=== PATIENT | male | born 1940 | race Caucasian/White ===

== ENCOUNTER → 2016-12-03 | Outpatient (CLI) | payer OTHER | LOC: FIMAGING 14:53 | PROVIDERS: ATTEND Orthopaedic Surgery | DX: M17.12 Unilateral primary osteoarthritis, left knee (principal); K57.30 Diverticulosis of large intestine without perforation or abscess without bleeding ==

== ENCOUNTER 2016-12-13 10:59 | Inpatient (IN) | payer OTHER ==
[~2016-12-13 10:59] MED LIST: ACETAMINOPHEN 325 MG TAB PO ONE; CEFAZOLIN 2 GM/DEXTR 100 ML IV ONE; CHLORHEXIDINE GLUC HIBICLENS 118 ML BTL TP ONE; DEXAMETHASONE 4 MG/ML VIAL IVP ONE; FAMOTIDINE 20 MG TAB PO ONE; ROPI/epiNEPH/KETOROLAC JOINT COCKTAIL IU ONE; SKIN ADHESIVE (DERMABOND) 1 EACH TP ONE; TRANEXAMIC ACID 3,000 MG in NS 50 ML IRR ONE; TRANEXAMIC ACID 3,000 MG/50 ML BAG IRR ONE; VANCOMYCIN 1 GM VIAL IV ONE
[2016-12-13] MEDS ORDERED: DEXAMETHASONE 4 MG/ML VIAL ONE ×2 (11:53→12:57)
[2016-12-13] MEDS ORDERED: FAMOTIDINE 20 MG TAB ONE (11:54)
[2016-12-13] MEDS ORDERED: ACETAMINOPHEN 325 MG TAB ONE (11:54)
[2016-12-13] MEDS ORDERED: CEFAZOLIN 2 GM/DEXTROSE/100 ML BAG IV ONE (11:54)
[2016-12-13] MEDS ORDERED: MIDAZOLAM 2 MG/2 ML VIAL ONE (12:19)
[2016-12-13] MEDS ORDERED: PROPOFOL/EMULSION 500 MG/50 ML BOTTLE IV ONE ×2 (12:23→12:35)
[2016-12-13] MEDS ORDERED: fentaNYL 100 MCG/2 ML INJ ONE (12:24)
[2016-12-13] MEDS ORDERED: ONDANSETRON 4 MG/2 ML VIAL ONE (12:57)
[2016-12-13] MEDS ORDERED: epHEDrine SULFATE 10 MG/ML SYR ONE (13:22)
[2016-12-13] MEDS ORDERED: ROPIVACAINE HCL 150 MG/30 ML INJ ONE (13:42)
[2016-12-13] MEDS ORDERED: PHARMACY PAIN CONSULT 1 EA MISC PRN (13:51)
[2016-12-13] MEDS ORDERED: TEMAZEPAM 15 MG CAP PO PRN (13:51)
[2016-12-13] MEDS ORDERED: CYCLOBENZAPRINE 10 MG TAB PO PRN (13:51)
[2016-12-13] MEDS ORDERED: diphenhydrAMINE 25 MG CAP PO PRN (13:51)
[2016-12-13] MEDS ORDERED: MAGNESIUM HYDROXIDE 30 ML UDCUP PO PRN (13:51)
[2016-12-13] MEDS ORDERED: METOCLOPRAMIDE 10 MG/2 ML VIAL IVP PRN (13:51)
[2016-12-13] MEDS ORDERED: BISACODYL 10 MG SUPP PR PRN (13:51)
[2016-12-13] MEDS ORDERED: ONDANSETRON DISINTEGRATING 4 MG TAB PO PRN (13:51)
[2016-12-13] MEDS ORDERED: PROMETHAZINE HCL 25 MG SUPPR PR PRN (13:51)
[2016-12-13] MEDS ORDERED: POLYETHYLENE GLYCOL 3350 17 GM PKT PO PRN (13:51)
[2016-12-13] MEDS ORDERED: ONDANSETRON 4 MG/2 ML VIAL IVP PRN (13:51)
[2016-12-13] MEDS ORDERED: LACTULOSE 20 GM/30 ML UDCUP PO PRN (13:51)
[2016-12-13] MEDS ORDERED: DIPHENOXYLATE/ATROPINE LOMOTIL 1 TAB PO PRN (13:51)
--- NOTE | 2016-12-13 13:51 | POSTOPPROG ---
Post Op Note Date of Operation: 12/13/16 Surgeon: Jayda Lawrence Mixing Operator: carlos lawrence Anesthesiologist: dr. morrison Anesthesia: Spinal, Other (Specify) (adductor canal block) Pre-op Diagnosis: left knee OA Post-op Diagnosis: same Indication: left knee pain due to OA that failed conservative measures Procedure: L tKA Findings: severe knee OA Inf/Abcess present in the surg proc area at time of surgery?: No EBL: 50-100
[2016-12-13] MEDS ORDERED: LR 1,000 ML IV SCH (14:00)
[2016-12-13] MEDS: ACETAMINOPHEN 325 MG TAB PO SCH ×2 (17:04→23:07)
[2016-12-13] MEDS: oxyCODONE IR 5 MG TAB PO PRN (18:44)
--- NOTE | 2016-12-13 19:12 | GOP ---
[f rep st] OPERATIVE REPORT DATE OF OPERATION: 12/13/2016 SURGEON: Denia Mcdowell MD INTERPRETER TRANSLATOR: Betty Mcdowell PA-C. ANESTHESIA: Spinal. PREOPERATIVE DIAGNOSIS: Left knee osteoarthritis. POSTOPERATIVE DIAGNOSIS: Left knee osteoarthritis. PROCEDURE PERFORMED: FINDINGS: ESTIMATED BLOOD LOSS: 30 cc. INDICATIONS: This is a 76-year-old male with severe and progressive pain and deformity of the left knee unresponsive to conservative care. Risks and benefits of the surgical intervention were explained in detail. DESCRIPTION OF PROCEDURE: The patient was brought to the operative room and placed on the table in the supine position. Spinal anesthesia was induced without difficulty. A pneumatic tourniquet was applied about the left proximal thigh, and the leg was prepped and draped in a sterile fashion. The leg davila was applied. After exsanguination by elevation the tourniquet was inflated to 250 mm of mercury. Incision was made anterior medial from the tibial tuberosity to a point 2 cm proximal to the superior pole of the patella. Medial parapatellar arthrotomy was carried out from the superior pole of the patella and posteriorly in line with the fibers of the Type II VMO. The medial collateral ligament was elevated and the infrapatellar fat pad was resected. The patella was everted and the articular surface was excised. A 38 mm patellar button was placed. The distal femoral guide hole was drilled and the 6 degree alignment rigo was placed. A 10 mm distal femoral cut was made without difficulty. Attention was turned to the tibia and a standard 9 mm cut based on the lateral tibial condyle was performed. The tibial articular surface was excised without difficulty. Attention was turned back to the femur and a size 5 femoral cutting block was positioned. Anterior, posterior, and chamfer cuts were made, followed by the intercondylar box cut. The knee was extended and the remnants of the medial and lateral meniscus were excised. The posterior capsule was injected with ropivacaine, epinephrine and Toradol. A size 6 MIS mini-keel tray was positioned. Trial reduction was then carried out. There was excellent range of motion, alignment, and stability using the 11 mm polyethylene. All trials were then removed. The joint was thoroughly irrigated and carefully dried. Two packages of cement and 2 grams of vancomycin were mixed in the vacuum mixer and placed on the fixation surfaces of all surfaces of the components. The components were implanted and all excess cement was thoroughly removed. The permanent 11 mm polyethylene was placed without difficulty. The tourniquet was deflated and all bleeders were coagulated. The wound was thoroughly irrigated and closed using interrupted sutures of 2-0 Vicryl for the joint capsule. The subcu was closed with 3-0 Vicryl and the skin with 4-0 Monocryl. Dermabond and Steri-Strips were applied followed by a compressive dressing. The patient was then moved from the operating room to the recovery room in good condition, having tolerated the procedure well. PROCEDURE: Left total knee arthroplasty. PATHOLOGY: Severe medial and patellofemoral osteoarthritis. /[id number]/MODL MTDD
[2016-12-13] MEDS: ASPIRIN 325 MG TAB PO SCH (20:12)
[2016-12-13] MEDS: ceFAZolin 2 GM/DEXTROSE 100 ML IV SCH (20:13)
[2016-12-13] MEDS: FAMOTIDINE 20 MG TAB PO SCH (20:13)
[2016-12-13] MEDS: SENNOSIDES/DOCUSATE SODIUM TAB PO SCH (20:13)
[2016-12-14] MEDS: ACETAMINOPHEN 325 MG TAB PO SCH (04:36)
[2016-12-14] MEDS: ceFAZolin 2 GM/DEXTROSE 100 ML IV SCH (04:37)
[2016-12-14 05:15] LABS: HEMATOCRIT 42.4 % (40.0-51.0); HEMOGLOBIN 14.3 g/dL (13.7-17.5)
[2016-12-14 07:23] VITALS: BP 126/63; PULSE 66; RESP 16; TEMP 98.1; O2SAT 98
[2016-12-14] MEDS: ASPIRIN 325 MG TAB PO SCH (07:52)
[2016-12-14] MEDS: oxyCODONE IR 5 MG TAB PO PRN (07:53)
[2016-12-14] MEDS: SENNOSIDES/DOCUSATE SODIUM TAB PO SCH (07:55)
[2016-12-14] MEDS: FAMOTIDINE 20 MG TAB PO SCH (07:56)
--- NOTE | 2016-12-14 09:51 | SOAPPROG ---
SOAP Progress Note Assessment/Plan: Assessment: Paulino is doing well today POD 1 s/p L TKA 1. pain management: well controlled on oral pain meds 2. VTE ppx: recommend ASA daily for 3 weeks. continue DARREN hose and SCD 3.anemia: level expected initially postop, asymptomatic 4. d/c planning : d/c to home pending release from PT Plan: 12/14/16 09:50 Subjective: Paulino is doing well today, denies SOB, chest pain and N/V. Objective: Vital Signs Temp Pulse Resp BP Pulse Ox 36.7 C 66 16 126/63 H 98 12/14/16 07:21 12/14/16 07:21 12/14/16 07:21 12/14/16 07:21 12/14/16 07:21 Laboratory Results 12/14/16 04:37 12/13/16 12/14/16 12/15/16 05:59 05:59 06:59 Intake Total 2950 Output Total 1830 Balance 1120 LLE: incision dressing is clean and dry, NVI, +pf/df ICD10 Worksheet Patient Problems: Problems Problem Status Onset Primary localized osteoarthritis of left knee Acute
== END 2016-12-14 11:23 | disposition home or self-care (01) | DRG 470 ==
LOC: F3E 10:59 → F3N 14:11
PROVIDERS: ADMIT Orthopaedic Surgery; ATTEND Orthopaedic Surgery
PROC: 0SRD0J9 Replacement of Left Knee Joint with Synthetic Substitute, Cemented, Open Approach (ICD-10-PCS; principal; 2016-12-13 13:15)
DX: M17.12 Unilateral primary osteoarthritis, left knee (principal); Z85.820 Personal history of malignant melanoma of skin; Z80.9 Family history of malignant neoplasm, unspecified; Z82.49 Family history of ischemic heart disease and other diseases of the circulatory system
CPT/HCPCS: 97116-GP; 97161-GP; 97165-GO; C1713; G8978-GP-CI; G8979-GP-CI; G8980-GP-CI; G8987-GO-CI; G8988-GO-CI; G8989-GO-CI; J0171; J0690; J1100; J1885; J2250; J2405; J2704; J2795; J3010; J3370